=== PATIENT | male | born 1955 | race Caucasian/White ===

== ENCOUNTER 2018-09-01 08:30 | Day surgery (SDC) | payer BC ==
[2018-09-01] MEDS ORDERED: PROPOFOL 500 MG/50 ML EMU IV ONE (08:56)
[2018-09-01] MEDS ORDERED: LIDOCAINE HCL 1% MPF 30 SOL ONE (08:56)
[2018-09-01 10:56] VITALS: RESP 18
[2018-09-01 11:10] VITALS: BP 131/86; PULSE 63; TEMP 97.4; O2SAT 92
== END 2018-09-01 11:40 | disposition home or self-care (01) ==
LOC: SURG 08:30
PROVIDERS: ATTEND Surgery
DX: R19.5 Other fecal abnormalities (principal); D12.2 Benign neoplasm of ascending colon; D12.4 Benign neoplasm of descending colon; D12.5 Benign neoplasm of sigmoid colon; K52.9 Noninfective gastroenteritis and colitis, unspecified
CPT/HCPCS: 99001; J2001; J2704